=== PATIENT | female | born 1955 | race Caucasian/White ===

== ENCOUNTER 2016-11-19 17:31 | Emergency (ER) | payer MEDICARE, OTHER ==
[2016-11-19] MEDS ORDERED: ONDANSETRON HCL 4 MG/2 ML VIAL ONE (18:53)
[2016-11-19 19:03] LABS: BASOPHILS 0.7 % (0.0-2.0); EOSINOPHILS# 0.1 X 10^3uL (0.0-0.4); HEMATOCRIT 39.9 % (36.0-48.0); HEMOGLOBIN 13.5 g/dL (12.0-16.0); LYMPHOCYTES 42.2 % (20.0-40.0); LYMPHOCYTES# 2.3 X 10^3uL (0.8-3.8); MEAN CELL VOLUME 88.9 fL (80.0-100.0); MEAN CORPUS. HGB CONCENTRATION 33.9 g/dL (32.0-36.0); MEAN CORPUSCULAR HEMOGLOBIN 30.1 pg (29.0-35.0); MEAN PLATELET VOLUME 7.5 fL (7.4-10.4); MONOCYTES 9.7 % (2.0-10.0); MONOCYTES# 0.5 X 10^3uL (0.2-1.0); NEUTROPHILS 45.4 % (54.0-75.0); NEUTROPHILS# 2.5 X 10^3uL (2.6-6.7); PLATELET COUNT 293 X 10^3uL (130-440); RED BLOOD COUNT 4.49 X 10^6uL (4.20-6.10); RED CELL DISTRIBUTION WIDTH 11.7 % (11.5-14.5); WHITE BLOOD COUNT 5.4 X 10^3uL (3.9-10.7)
[2016-11-19 19:14] LABS: ALBUMIN 4.5 g/dL (3.5-5.0); ALKALINE PHOSPHATASE 48 U/L (38-126); ALT 33 U/L (9-52); AST 30 U/L (14-36); BILIRUBIN, DIRECT 0.1 mg/dL (0.0-0.4); BILIRUBIN, TOTAL 1.1 mg/dL (0.2-1.3); BLOOD UREA NITROGEN 20 mg/dL (7-17); CALCIUM 9.3 mg/dL (8.4-10.2); CHLORIDE 104 mmol/L (98-107); CREATININE 0.9 mg/dL (0.5-1.0); EST GLOMERULAR FILTRATION RATE > 60 mL/min; GLUCOSE 92 mg/dL (70-100); LIPASE 397 U/L (23-300); POTASSIUM 4.2 mmol/L (3.5-5.1); SODIUM 141 mmol/L (137-145); TOTAL PROTEIN 7.8 g/dL (6.3-8.2)
--- NOTE | 2016-11-19 20:25 | CT REPORT ---
HISTORY: Intermittent abdominal pain COMPARISON: None. TECHNIQUE: This examination was performed using automated exposure control, adjustment of mA or kV according to patient size, and/or use of iterative reconstruction technique. Multiple contiguous axial images were obtained from the lung bases through the pubic symphysis without intravenous contrast. Rectal contra st was missed of the exam. FINDINGS: The lung bases are clear. There is no pleural or pericardial effusion. The heart size is normal. The liver, spleen, pancreas, adrenal glands, and kidneys appear grossly unremarkable. The gallbladder surgically absent. Bile ducts are normal in caliber. The abdominal aorta is normal in caliber and sh ows mild atherosclerotic disease. The colon is well distended. There is no evidence for mass or diverticulosis. There is no diverticuli tis. No evidence for appendicitis is demonstrated. There is no free fluid, free air, or abscess. No e nlarged lymph nodes are demonstrated. Bones appear unremarkable. IMPRESSION: No etiology for abdominal pain demonstrated. No evidence for diverticulitis or bowel obstruction. Final Electronic Signature: This report was electronically signed by Miguel A Dillon MD on 11/19/2016 8:23 PM. kamla /
--- NOTE | 2016-11-19 20:58 | ER PHYSICIAN DOCUMENTATION ---
Physician Documentation [facility] Name:Yuly Lantigua Age:61 yrs Sex:Female :1955 Arrival Date:11/19/2016 Time:17:31 Bed3 Private MD:Shailesh Mercado ED MynorEulalio Disposition: 11/19 20:21 Chart complete. tl1 Disposition: 11/19/16 20:34 Discharged to Home/Self Care. Impression: Abdominal Pain, Left Lower Quadrant. - Condition is Good. - Discharge Instructions: ABDOMINAL PAIN, Unknown Cause, (Female). - Medical Reconciliation form form. - Follow up: Shailesh Mercado MD; When: 4- 6 days; Reason: Recheck today's complaints, Continuance of care. Follow up: Kash Stinson MD; When: 4- 6 days; Reason: Recheck today's complaints, Continuance of care. Follow up: Franck Blanchard MD; When: 7 - 10 days; Reason: Recheck today's complaints, Continuance of care. - Problem is new. - Symptoms are unchanged. HPI: 19:20 This 61 yrs old Female presents to ER via Private Vehicle with complaints of tl1 Abdominal Pain - LEFT SIDED. 19:20 She has a long h/o IBS and painful spasms of her sigmoid colon, according to her 1 cork slabs sawyer. She says a colonoscopy 3 years ago showed polyps that were removed. Over the last month or so she has had progressively more frequent very brief episodes of sharp LLQ pain. She talked to Dr Stinson's nurse today who advised her to come to the ED for a CT of the abdomen. She has had about 40-50 episodes today of a very brief (1-2 sec) sharp pains and nausea that has waxed and waned all day. This pain is different than the usual pain she gets with her IBS No vomiting or diarrhea. She has had 2 stools that were sort of loose after taking some milk of mag last night. No f/c/s. No m/h/h. No urinary symptoms or vaginal bleeding. Historical: - Allergies: Codeine; Epinephrine; Codeine; sensitive to epinephrine and prednisone; - Home Meds: 1. azopt eye drops Unknown 2. cefdinir oral 3. Bactrim DS Oral 4. adavaequin 5. Nystatin Oral 6. Curcumin misc 7. methylguard 8. magnesium 9. lomosapudcia - PMHx: lyme disease, chronic; IBS; Palpitations (September 23, 2015); Anxiety Reaction (September 23, 2015); interstitial cystitis; - PSHx: CHOLECYSECTOMY; HERNIA REPAIR; thumb; removal of cyst from chin; 75% thyroidectomy; - Tetanus: unknown. - Ebola Screening: : Patient negative for fever greater than or equal to 101.5 degrees Fahrenheit, and additional compatible Ebola Virus Disease symptoms. Patient denies exposure to infectious person. Patient denies travel to an Ebola-affected area in the 21 days before illness onset. No symptoms or risks identified at this time. . - Immunization history: Unable to Obtain. - Social history: Smoking status: Patient states was never smoker of tobacco. Patient/guardian denies using alcohol. ROS: 20:16 Abdomen/GI: Positive for abdominal pain, nausea, Negative for vomiting, diarrhea, tl1 constipation, abdominal cramps, abdominal distension, anorexia, hematemesis, black/tarry stool, rectal bleeding. 20:16 All other systems are negative. Exam: 20:16 Constitutional: This is a well developed, well nourished patient who is awake, alert, tl1 and in no acute distress. Head/Face: Normocephalic, atraumatic. Cardiovascular: Regular rate and rhythm with a normal S1 and S2. No gallops, murmurs, or rubs. Normal PMI, no JVD. No pulse deficits. 20:16 Respiratory: Lungs have equal breath sounds bilaterally, clear to auscultation and tl1 percussion. No rales, rhonchi or wheezes noted. No increased work of breathing, no retractions or nasal flaring. 20:16 Abdomen/GI: Inspection: abdomen appears normal, Bowel sounds: active, Palpation: soft, mild abdominal tenderness, in the left lower quadrant, mass, is not appreciated, rebound tenderness, is not appreciated, voluntary guarding, is not appreciated. 20:16 Musculoskeletal/extremity: Extremities: all appear grossly normal, with no appreciated pain with palpation. 20:16 Skin: Exam negative for acute changes. 20:16 Neuro: GROSSLY NORMAL. Vital Signs: 17:50 BP 156 / 63; Pulse 76; Resp 18; Temp 98.7; Pulse Ox 95% ; Pain 5/10; rs 18:51 BP 142 / 70; Pulse 73; Resp 16; Pulse Ox 96% on R/A; Pain 4/10; sj 19:22 Pulse 89 MON; Resp 16; Pulse Ox 99% ; mk2 19:30 BP 136 / 57; Pulse 68; Resp 18; Pulse Ox 96% on R/A; sj 20:29 BP 124 / 53; Pulse 67; Resp 16; Pulse Ox 93% on R/A; Pain 4/10; sj MDM: 17:52 Patient medically screened. cd 20:18 Differential diagnosis: appendicitis, bowel obstruction, diverticulitis, Irritable tl1 bowel syndrome, sympomatic leaking abdominal aortic aneurysm, Mesenteric ischemia or infarction, Pyelonephritis, Ureterolithiasis, urinary tract infection. Data reviewed: vital signs, nurses notes, lab test result(s), CBC, electrolytes, hepatic panel, urinalysis, and as a result, I will discharge patient. Counseling: I had a detailed discussion with the patient and/or guardian regarding: the historical points, exam findings, and any diagnostic results supporting the discharge/admit diagnosis, lab results, radiology results, the need for outpatient follow up, to return to the emergency department if symptoms worsen or persist or if there are any questions or concerns that arise at home. Medication response: The patient's symptoms have improved, zofran. Response to treatment: There is no appreciated change of the patient's symptoms at this time, the patient's symptoms have mildly improved after treatment, and as a result, I will discharge patient. 20:21 Special discussion: The cause of her pain is not clear by history, exam or CT. I don't tl1 think she needs to be admitted. I recommended she f/u with Dr Stinson next , the . . ED course: Intermittent mild nausea and occasional very brief episodes of pain. No vomiting or diarrhea. Repeat abdominal exam was benign, with mild L>R LQ tenderness. CT of the abdomen was normal except for some questionable thickening of the transverse colon.. 20:47 Special discussion: She has seen a local physician in the past but would like to see tl1 another. I suggested she might like Dr Blanchard.. 11/19 19:11 Order name: CBC AUTO DIF, MDIF/RMOR IF IND; Complete Time: 20:07 EDMS 11/19 19:42 Interpretation: WHITE BLOOD COUNT 5.4; HEMOGLOBIN 13.5; HEMATOCRIT 39.9; PLATELET COUNT tl1 293; NEUTROPHILS 45.4; LYMPHOCYTES 42.2. 11/19 19:16 Order name: BASIC METABOLIC PANEL; Complete Time: 20:07 EDMS 11/19 19:43 Interpretation: SODIUM 141; POTASSIUM 4.2; CHLORIDE 104; CARBON DIOXIDE 25; GLUCOSE 92; tl1 BLOOD UREA NITROGEN 20; CREATININE 0.9; EST GLOMERULAR FILTRATION RATE > 60. 11/19 19:16 Order name: HEPATIC PANEL; Complete Time: 20:07 EDMS 11/19 19:43 Interpretation: Normal. [facility] 11/19 19:16 Order name: LIPASE; Complete Time: 20:07 EDMS 11/19 19:43 Interpretation: LIPASE 397. [facility] 11/19 19:26 Order name: CAT SCAN; ABD/PEL W [id number]; Complete Time: 14:55 EDMS 11/20 14:55 Interpretation: Essentially normal; questionable thickening of the transverse colon. [facility] 11/19 18:22 Order name: NPO; Complete Time: 18:55 cd 11/19 18:22 Order name: Iv Saline Lock; Complete Time: 18:43 cd Dispensed Medications: 18:35 Drug: Zofran 4 mg; Route: IVP; Infused Over: 2 mins; Site: left antecubital; 19:31 Follow up: Response: Nausea is decreased Point of Care Testing: Guaiac: 17:50 Stool Guaiac: Negative; Stool Hemoccult Control: Pass; rs Urine Dip: 18:12 pH: 6.5; ; Specific [place]: 1.010; Ketones: Negative; Glucose: Negative; Protein: sj Negative; Leukocytes: Negative; Nitrite: Negative ; Blood: Negative; Bilirubin: Negative ; Urobilinogen: Normal Signatures: Patricia Acevedo RN RN rs Brian Toscano MD MD cd Leigh, Tom, MD MD [facility] Elis Godfrey
--- NOTE | 2016-11-19 20:58 | ER NURSING DOCUMENTATION ---
Nurse's Notes [facility] Name:Yuly Lantigua Age:61 yrs Sex:Female :1955 Arrival Date:11/19/2016 Time:17:31 Bed3 Private MD:Shailesh Mercado Diagnosis:Abdominal Pain, Left Lower Quadrant Presentation: 11/19 17:36 Presenting complaint: Patient states: "Side pain". C/O LLQ pain that started about one rs month ago. States it is very brief lasting seconds, but today it is more of a "pain" versus the aches that she has had. Long hx of lyme dz sequela that she takes abx for, hx of IBS, last colonoscopy 3 [address] to [address] Mcneal office last week and x-rays were ordered but she has not had them done. She called their office today and it was suggested that she get a CT at the ER. Denies any UTI sx, but has a hx of intersitial cystitis. Denies V/D, last BM was today and normal. No dark tarry stools. has had intermittent nausea for one week. She was constipated yesterday and took one dose of laxatives. No F/C. Eating and drinking near normal amounts. Transition of care: Home. 17:36 Acuity: NILE 3 rs 17:36 Method Of Arrival: Private Vehicle rs 17:50 Notified ED Physician of patient's arrival and CC Dr. Toscano notified. Triage Assessment: 18:18 General: Appears slender, uncomfortable, well developed, well nourished, well groomed, rs Behavior is cooperative, pleasant. Pain: Complains of pain in LLQ abd. Neuro: No deficits noted. Level of Consciousness is awake, alert, Oriented to person, place, time, event. Cardiovascular: No deficits noted. Capillary refill < 3 seconds Pulses are 3+ in right radial artery. Respiratory: No deficits noted. Respiratory effort is even, unlabored, Respiratory pattern is regular, symmetrical. GI: Abdomen is flat, non- distended Bowel sounds hypoactive in right upper quadrant, left upper quadrant, right lower quadrant and left lower quadrant Abd is soft Abd is non tender in left upper quadrant and right lower quadrant Abdomen is tender to palpation in right upper quadrant and left lower quadrant Reports lower abdominal pain, nausea, Denies anorexia, bloating, cramping, diarrhea, epigastric pain, intolerance of fluids, intolerance of food. : No deficits noted. Urine is clear, Denies burning with urination, discharge, urinary frequency, urgency. Derm: No deficits noted. Skin is. Historical: - Allergies: Codeine; Epinephrine; Codeine; sensitive to epinephrine and prednisone; - Home Meds: 1. azopt eye drops Unknown 2. cefdinir oral 3. Bactrim DS Oral 4. adavaequin 5. Nystatin Oral 6. Curcumin misc 7. methylguard 8. magnesium 9. lomosapudcia - PMHx: lyme disease, chronic; IBS; Palpitations (September 23, 2015); Anxiety Reaction (September 23, 2015); interstitial cystitis; - PSHx: CHOLECYSECTOMY; HERNIA REPAIR; thumb; removal of cyst from chin; 75% thyroidectomy; - Tetanus: unknown. - Ebola Screening: : Patient negative for fever greater than or equal to 101.5 degrees Fahrenheit, and additional compatible Ebola Virus Disease symptoms. Patient denies exposure to infectious person. Patient denies travel to an Ebola-affected area in the 21 days before illness onset. No symptoms or risks identified at this time. . - Immunization history: Unable to Obtain. - Social history: Smoking status: Patient states was never smoker of tobacco. Patient/guardian denies using alcohol. Screenin:30 Infectious Disease Risk None. Abuse screen: Denies threats or abuse. Nutritional rs screening: No deficits noted. Assessment: 18:29 See Triage Assessment done by same RN. rs 20:31 Reassessment: Patient states symptoms have not improved. describes LLQ pain as sj spasmodic, comes as quickly as it goes. Pain increases to 4/10 when occurs. Vital Signs: 17:50 BP 156 / 63; Pulse 76; Resp 18; Temp 98.7; Pulse Ox 95% ; Pain 5/10; rs 18:51 BP 142 / 70; Pulse 73; Resp 16; Pulse Ox 96% on R/A; Pain 4/10; sj 19:22 Pulse 89 MON; Resp 16; Pulse Ox 99% ; mk2 19:30 BP 136 / 57; Pulse 68; Resp 18; Pulse Ox 96% on R/A; sj 20:29 BP 124 / 53; Pulse 67; Resp 16; Pulse Ox 93% on R/A; Pain 4/10; sj ED Course: 17:33 Patient arrived in ED. lm3 17:33 Shailesh Mercado MD is Private Physician. lm3 17:39 Triage completed. rs 17:40 Notified ED Physician of patient's arrival and chief complaint. Dr. Toscano notified. rs 17:52 Brian Toscano MD is Attending Physician. cd 17:55 Arm band placed on Bed in low position Call Light in Reach HOB Elevated Side rails up rs x1. Family accompanied patient. 17:55 Door closed. Noise minimized. Lights dimmed. Verbal reassurance given. Diet: Patient is rs NPO. 17:58 Patricia Acevedo, RN is Primary Nurse. rs 18:30 Valuables Remains with patient. rs 18:30 Assist Provider rectal exam. rs 18:30 Inserted peripheral IV: 20 gauge in left antecubital area and blood collected. sj 19:26 CAT SCAN; ABD/PEL W [id number] In Process Unspecified. EDMS 19:[address] [place] 19:[address] Patient moved back [address]. [place] 19:31 CAT SCAN; ABD/PEL W [id number] Sent. [place]alino 19:42 Attending Physician role handed off by Brian Toscano MD tl1 19:42 Eulalio Barron MD is Attending Physician. tl1 20:33 Shailesh Mercado MD is Referral Physician. tl1 20:33 Kash Stinson MD is Referral Physician. tl1 20:46 Referral Physician role handed off by Shailesh Mercado MD tl1 20:46 Franck Blanchard MD is Referral Physician. tl1 Administered Medications: 18:35 Drug: Zofran 4 mg; Route: IVP; Infused Over: 2 mins; Site: left antecubital; sj 19:31 Follow up: Response: Nausea is decreased sj Point of Care Testing: Guaiac: 17:50 Stool Guaiac: Negative; Stool Hemoccult Control: Pass; rs Urine Dip: 18:12 pH: 6.5; ; Specific [place]: 1.010; Ketones: Negative; Glucose: Negative; Protein: sj Negative; Leukocytes: Negative; Nitrite: Negative ; Blood: Negative; Bilirubin: Negative ; Urobilinogen: Normal Outcome: 20:34 Discharge ordered by . tl1 20:56 Discharged to home ambulatory, with family. sj 20:56 Condition: stable 20:56 Instructed on discharge instructions, follow up and referral plans. Demonstrated understanding of instructions. 20:57 Patient left the ED. sj 11/20 14:20 Discharge F/U Call: Spoke with: patient. Are you having any pain? yes. Pain level is sj 10 How are you managing your pain? Heat/Ice Have you filled your prescriptions? n/a Did your discharge instructions answer all of your questions? yes Have you made a f/u appointment? yes Overall Care on a scale of 1-10 with 10 being the best care, you rate our care as: the rating of 10. What is the one thing you feel we could do to improve? Patient's answer: Thank you, you were wonderful! Signatures: Dispatcher [employer] Patricia Moralez, SALLIE RN rs Brian Toscano MD MD cd Abbott, Karla Sanders RN RN mk2 Eulalio Barron MD MD tl1 Bekah, Lina Felipe
== END 2016-11-19 20:58 | disposition home or self-care (01) ==
LOC: ER 17:31
DX: R10.32 Left lower quadrant pain (principal); R11.0 Nausea; K58.9 Irritable bowel syndrome, unspecified; A69.29 Other conditions associated with Lyme disease; Z79.899 Other long term (current) drug therapy
CPT/HCPCS: 74177; 80048; 80076; 83690; 85025; 96374; 99284; J2405